=== PATIENT | female | born 1955 | race Native Hawaiian/Other Pacific Islander ===

== ENCOUNTER 2019-08-26 10:25 | Outpatient (CLI) | payer BC ==
[~2019-08-26 10:25] MED LIST: CELEBREX100 MG PO; HYDR200T3 PO; LIPITOR10 MG PO; TRIATAB14 PO; VIT E COMPLX400 UNIT PO; WARF2.5T8 PO; WARF5TAB6 PO
[2019-08-26 11:12] LABS: PLATELET COUNT 246 K/uL (152-353)
== END 2019-08-26 19:42 | disposition home or self-care (01) ==
LOC: RAD 10:25
PROVIDERS: Family Medicine
DX: R05 Cough (principal); R50.9 Fever, unspecified
CPT/HCPCS: 36415; 85027

== ENCOUNTER 2021-12-28 09:10 | Outpatient (CLI) | payer OTHER ==
[2021-12-28 09:36] LABS: PLATELET COUNT 244 K/uL (152-353)
[2021-12-28 09:40] LABS: POTASSIUM 3.6 mmol/L (3.6-5.2)
== END 2021-12-28 19:19 | disposition home or self-care (01) ==
LOC: LABW 09:10
PROVIDERS: ATTEND Nurse Practitioner Family
DX: C83.00 Small cell B-cell lymphoma, unspecified site (principal)
CPT/HCPCS: 36415; 80053; 83615; 85027

== ENCOUNTER 2022-05-24 08:55 | Outpatient (CLI) | payer OTHER ==
[2022-05-24 09:18] LABS: POTASSIUM 3.5 mmol/L (3.6-5.2)
[2022-05-24 09:19] LABS: PLATELET COUNT 273 K/uL (152-353)
== END 2022-05-24 19:02 | disposition home or self-care (01) ==
LOC: LABW 08:55
PROVIDERS: ATTEND Internal Medicine Hematology & Oncology
DX: Z08 Encounter for follow-up examination after completed treatment for malignant neoplasm (principal); Z85.72 Personal history of non-Hodgkin lymphomas
CPT/HCPCS: 36415; 80053; 83615; 85027

== ENCOUNTER 2022-08-15 07:51 | Outpatient (CLI) | payer OTHER | END 2022-08-15 20:18 | disposition home or self-care (01) | LOC: CT 07:51 | PROVIDERS: ATTEND Nurse Practitioner Family | DX: R10.9 Unspecified abdominal pain (principal); R35.0 Frequency of micturition; R31.9 Hematuria, unspecified ==

== ENCOUNTER 2022-09-14 10:54 | Outpatient (CLI) | payer OTHER ==
[2022-09-14 11:08] LABS: PLATELET COUNT 250 K/uL (152-353)
[2022-09-14 11:33] LABS: POTASSIUM 3.6 mmol/L (3.6-5.2)
== END 2022-09-14 19:05 | disposition home or self-care (01) ==
LOC: LABW 10:54
PROVIDERS: ATTEND Internal Medicine Hematology & Oncology
DX: C83.00 Small cell B-cell lymphoma, unspecified site (principal)
CPT/HCPCS: 36415; 80053; 83615; 85027

== ENCOUNTER 2022-11-01 10:00 | Outpatient (CLI) | payer OTHER | END 2022-11-01 19:06 | disposition home or self-care (01) | LOC: RAD 10:00 | PROVIDERS: ATTEND Nurse Practitioner Family | DX: Z13.820 Encounter for screening for osteoporosis (principal); M32.8 Other forms of systemic lupus erythematosus; C85.90 Non-Hodgkin lymphoma, unspecified, unspecified site; N95.8 Other specified menopausal and perimenopausal disorders ==

== ENCOUNTER 2023-03-23 10:54 | Outpatient (CLI) | payer OTHER ==
[2023-03-23 11:19] LABS: POTASSIUM 3.6 mmol/L (3.6-5.2)
[2023-03-23 11:25] LABS: PLATELET COUNT 252 K/uL (152-353)
== END 2023-03-23 19:50 | disposition home or self-care (01) ==
LOC: LABW 10:54
PROVIDERS: ATTEND Internal Medicine Hematology & Oncology
DX: C83.00 Small cell B-cell lymphoma, unspecified site (principal)
CPT/HCPCS: 36415; 80053; 83615; 85027